=== PATIENT | female | born 1980 | race Caucasian/White ===

== ENCOUNTER → 2020-08-04 | Outpatient (CLI) | payer OTHER ==
[~2020-08-04] MED LIST: AMLODIPINE BESY10 MG PO; CITALOPRAM HBR20 MG PO; EUTHYROX200 MCG PO; HYDROCHLOROTH12.5 MG PO; HYDROCODON-ACE1 EAC4 PO; IBUPROFEN600 MG PO; LEVOTHYROXINE150 MCG PO; LISINOPRIL10 MG PO; LOSARTAN POTASS25 MG PO; NAPROSYN500 MG PO; NORCO 5-325 TA1 EACH PO; PROVENTIL HFA 61 INH INH; ZOFRAN PO
[2020-08-04 10:58] LABS: HEMOGLOBIN 14.4 gm/dl (12.3-15.3); RED BLOOD COUNT 4.97 M/UL (4.00-5.10)
[2020-08-04 11:10] LABS: BUN/CREATININE RATIO 10 (0-10)
== END ==
LOC: OPSV2 10:00
PROVIDERS: Anesthesiology; Obstetrics & Gynecology
DX: Z11.52 Encounter for screening for COVID-19 (principal); I10 Essential (primary) hypertension
CPT/HCPCS: 36415; 80048; 81001; 85025

== ENCOUNTER → 2020-08-16 | Day surgery (SDC) | payer OTHER | END | disposition home or self-care (01) | LOC: OR 09:15 | PROVIDERS: Obstetrics & Gynecology | PROC: 0UBL0ZZ Excision of Vestibular Gland, Open Approach (ICD-10-PCS; principal; 2020-08-16 11:45) | DX: N75.0 Cyst of Bartholin's gland (principal); I10 Essential (primary) hypertension; F41.9 Anxiety disorder, unspecified; E03.9 Hypothyroidism, unspecified; J45.909 Unspecified asthma, uncomplicated; R06.83 Snoring; E66.01 Morbid (severe) obesity due to excess calories; Z68.43 Body mass index [BMI] 50.0-59.9, adult; Z88.5 Allergy status to narcotic agent; Z20.822 Contact with and (suspected) exposure to COVID-19 | CPT/HCPCS: J0690; J1100; J2001; J2250; J2405; J2704; J2795; J3010; J7120 ==